=== PATIENT | male | born 1960 | race Caucasian/White ===

== ENCOUNTER 2021-07-24 09:17 | Emergency (ER) | payer MEDICAID, SELFPAY ==
[2021-07-24 09:49] VITALS: BP 148/88; PULSE 65; RESP 20; TEMP 36.6
[2021-07-24 10:27] LABS: Abs Immature Grans 0.04 10^3/uL (0.0-0.06); Absolute Basophil Count 0.07 10^3/uL (0.0-0.2); Absolute Eosinophil Count 0.24 10^3/uL (0.0-0.7); Absolute Monocyte Count 0.62 10^3/uL (0.1-0.8); Absolute Neutrophil Count 7.52 10^3/uL (1.2-6.7); Basophils % 0.6; Eosinophils % 2.2; HCT 45.9 % (40.0-50.0); HGB 14.8 g/dL (13.5-17.5); Immature Grans % 0.4; Lymphocytes % 21.8; MCH 31.8 pg (27.0-33.0); MCHC 32.2 % (32.0-36.0); MCV 98.7 fL (80-95); Monocytes % 5.7; Neutrophils % 69.3; Nucleated RBC 0 %; Platelet Count 266 10^3/uL (130-400); RBC 4.65 10^6/uL (4.36-5.78); RDW 12.3 % (11.8-14.1); RDW-SD 44.8 fL; WBC 10.85 10^3/uL (4.4-10.8)
[2021-07-24 10:28] LABS: Absolute Lymphocyte Count 2.37 10^3/uL (1.2-3.4)
[2021-07-24 10:42] LABS: ALT 15 U/L (16-63); AST 12 U/L (15-37); Albumin 3.6 g/dL (3.4-5.0); Alkaline Phosphatase 76 U/L (46-116); Anion Gap 5.7 mmol/L (3-11); BUN 20 mg/dL (7-18); Bilirubin, Total 0.4 mg/dL (0.2-1.0); CO2 30.3 mmol/L (21.0-32.0); CREATININE 1.2 mg/dL (0.70-1.30); Calcium 8.9 mg/dL (8.5-10.1); Chloride 105 mmol/L (98-107); Glucose 99 mg/dL (74-106); Lipase 45 U/L (73-393); Potassium 4.3 mmol/L (3.5-5.1); Sodium 141 mmol/L (136-145); Total Protein 7.3 g/dL (6.4-8.2)
--- NOTE | 2021-07-24 10:49 | DI.RAD_ITS ---
Exam(s) XR CHEST 2V PA LATERAL EXAM: XR CHEST 2V PA LATERAL CLINICAL HISTORY: cough, r/o acute disease. TECHNIQUE: 2D digital imaging was performed. COMPARISON: No exams were available for comparison FINDINGS: 2 views: Heart size is normal. The mediastinum is not widened. Lungs are clear. No infiltrates nor pleural effusions. Few tiny granulomas are noted in the mid right lung field. IMPRESSION: No acute pulmonary findings. DATA REPOSITORY: RADIATION DOSE DELIVERED:
--- NOTE | 2021-07-24 11:01 | ED.GENADUL_ITS ---
Discharge Plan Disposition Patient Disposition: HOME Condition: Stable Discharge Details Clinical Impression: UTI (urinary tract infection), Chronic sore throat, Chronic cough Primary Care Provider: Unknown,Unknown ED Provider: Edita Trivedi Home Meds and New Rx's Prescriptions: New cephalexin 500 mg capsule 500 mg PO QID 10 Days Qty: 40 0RF Discharge Instructions Instructions: Urinary Tract Infection in Men (ED), Chronic Cough (ED) Additional Instructions: Your work-up today revealed that you have a urinary tract infection. Your Covid, flu, RSV test today is negative. The remainder of your lab work and imaging today is reassuring and shows no evidence of acute concerning or significant findings. You are being sent home with a prescription for antibiotics to take as directed until finished. You have been placed on care management list to arrange for a follow-up appointment with your primary care doctor to establish care and for reevaluation. Return immediately to the emergency department if you develop any worsening or new concerning symptoms. Discharge Data Discharge Date/Time-TO BE ENTERED AT DEPARTURE: 07/24/21 14:39 Discharge Physician: Edita Trivedi Medical Decision Making 60-year-old male with no known medical problems but states he has not seen a primary care doctor for more than 20 years presents for chronic cough, sore throat, body ache and weight loss over the past 2 months after diagnosed with COVID over 6 weeks ago. He is unclear of the amount of weight loss but states he has noticed he seems he has lost weight in his usual clothes. Vitals within normal limits. Patient appears comfortable and nontoxic. Patient arrived during high level of volume and acuity in the ED and screening labs including ua, Fluvid, CXR ordered. His lungs were clear. Abdomen soft nontender. No meningeal signs. Labs reviewed and noted white blood cell count of 10. Normal electrolytes. Lipase normal. Fluvid negative. Chest x-ray negative. Urinalysis notes findings consistent with UTI. Discussed with patient at length regarding his symptoms. Offered to place an IV and give IV fluids but he declined. Discussed his potential weight loss and obtaining a CT chest abdomen and pelvis but he declined stating he would only like antibiotics for his urinary tract infection. He was given a dose of Keflex here and 2 days of antibiotics to go home per his request. He was also given a prescription for keflex. Patient placed on care management list to arrange for a follow-up appointment with the primary care doctor to establish care and for reevaluation. Usual and customary return precautions given prior to discharge. Medical Records Medical records reviewed: Yes I reviewed the patient's medical records. Imaging Data Radiologic Study: Radiologist's impression: ?XR CHEST 2V PA ? LATERAL CLINICAL HISTORY: ? cough, r/o acute disease. ? TECHNIQUE:? 2D digital imaging was performed. COMPARISON:? No exams were available for comparison FINDINGS: 2 views: Heart size is normal.? The mediastinum is not widened. Lungs are clear.? No infiltrates nor pleural effusions. Few tiny granulomas are noted in the mid right lung field. IMPRESSION: No acute pulmonary findings. Lab Data Lab results reviewed: Yes I reviewed the patient's lab results. Labs: 07/24/21 11:11 Urine - Reflex from Ua Urine Culture - Pending Laboratory Tests Range/Units 07/24/21 07/24/21 07/24/21 10:03 10:21 10:21 WBC (4.4-10.8) 10^3/uL 10.85 H RBC (4.36-5.78) 10^6/uL 4.65 Hgb (13.5-17.5) g/dL 14.8 Hct (40.0-50.0) % 45.9 MCV (80-95) fL 98.7 H MCH (27.0-33.0) pg 31.8 MCHC (32.0-36.0) % 32.2 RDW (11.8-14.1) % 12.3 Plt Count (130-400) 10^3/uL 266 MPV (8.0-11.0) fL 10.0 Immature Gran % 0.4 Neutrophils % 69.3 Lymphocytes % 21.8 Monocytes % 5.7 Eosinophils % 2.2 Basophils % 0.6 Nucleated RBC % % 0 Absolute Neutrophils (1.2-6.7) 10^3/uL 7.52 H Absolute Lymphocytes (1.2-3.4) 10^3/uL 2.37 Absolute Monocytes (0.1-0.8) 10^3/uL 0.62 Absolute Eosinophils (0.0-0.7) 10^3/uL 0.24 Absolute Basophils (0.0-0.2) 10^3/uL 0.07 Sodium (136-145) mmol/L 141 Potassium (3.5-5.1) mmol/L 4.3 Chloride (98-107) mmol/L 105 Carbon Dioxide (21.0-32.0) mmol/L 30.3 Anion Gap (3-11) mmol/L 5.7 BUN (7-18) mg/dL 20 H Creatinine (0.70-1.30) mg/dL 1.2 Estimated GFR/1.73 m2 (mL/min/1.73m2) >= 60.00 Glucose (74-106) mg/dL 99 Calcium (8.5-10.1) mg/dL 8.9 Total Bilirubin (0.2-1.0) mg/dL 0.4 AST (15-37) U/L 12 L ALT (16-63) U/L 15 L Alkaline Phosphatase (46-116) U/L 76 Total Protein (6.4-8.2) g/dL 7.3 Albumin (3.4-5.0) g/dL 3.6 Lipase (73-393) U/L 45 Urine Color (Yellow) Urine Clarity (Clear) Urine pH (5-8) Ur Specific [place] (1.005-1.025) Urine Protein (Negative) mg/dL Urine Ketones (Negative) mg/dL Urine Blood (Negative) Urine Nitrite (Negative) Urine Bilirubin (Negative) Urine Urobilinogen (Up TO 0.2) EU/dL Ur Leukocyte Esterase (Negative) Urine RBC (0-2) HPF Urine WBC (0-5) HPF Ur Epithelial Cells (Negative) HPF Urine Crystals (Negative) HPF Urine Bacteria (Negative) HPF Urine Casts (Negative) LPF Urine Mucus (Negative) Ur Culture Indicated? Urine Glucose (Negative) mg/dL COVID-19 Source Not Applicable SARS-CoV-2 (PCR) (Negative) Negative Influenza Type A (PCR) (Negative) Negative Influenza Type B (PCR) (Negative) Negative RSV (PCR) (Negative) Negative Range/Units 07/24/21 11:11 WBC (4.4-10.8) 10^3/uL RBC (4.36-5.78) 10^6/uL Hgb (13.5-17.5) g/dL Hct (40.0-50.0) % MCV (80-95) fL MCH (27.0-33.0) pg MCHC (32.0-36.0) % RDW (11.8-14.1) % Plt Count (130-400) 10^3/uL MPV (8.0-11.0) fL Immature Gran % Neutrophils % Lymphocytes % Monocytes % Eosinophils % Basophils % Nucleated RBC % % Absolute Neutrophils (1.2-6.7) 10^3/uL Absolute Lymphocytes (1.2-3.4) 10^3/uL Absolute Monocytes (0.1-0.8) 10^3/uL Absolute Eosinophils (0.0-0.7) 10^3/uL Absolute Basophils (0.0-0.2) 10^3/uL Sodium (136-145) mmol/L Potassium (3.5-5.1) mmol/L Chloride (98-107) mmol/L Carbon Dioxide (21.0-32.0) mmol/L Anion Gap (3-11) mmol/L BUN (7-18) mg/dL Creatinine (0.70-1.30) mg/dL Estimated GFR/1.73 m2 (mL/min/1.73m2) Glucose (74-106) mg/dL Calcium (8.5-10.1) mg/dL Total Bilirubin (0.2-1.0) mg/dL AST (15-37) U/L ALT (16-63) U/L Alkaline Phosphatase (46-116) U/L Total Protein (6.4-8.2) g/dL Albumin (3.4-5.0) g/dL Lipase (73-393) U/L Urine Color (Yellow) Yellow Urine Clarity (Clear) Cloudy Urine pH (5-8) 7.0 Ur Specific [place] (1.005-1.025) 1.025 Urine Protein (Negative) mg/dL Negative Urine Ketones (Negative) mg/dL Negative Urine Blood (Negative) Small H Urine Nitrite (Negative) Positive H Urine Bilirubin (Negative) Negative Urine Urobilinogen (Up TO 0.2) EU/dL 0.2 Ur Leukocyte Esterase (Negative) Large H Urine RBC (0-2) HPF Urine WBC (0-5) HPF >50 H Ur Epithelial Cells (Negative) HPF Urine Crystals (Negative) HPF Urine Bacteria (Negative) HPF Many Urine Casts (Negative) LPF Urine Mucus (Negative) Ur Culture Indicated? Yes Urine Glucose (Negative) mg/dL Negative COVID-19 Source SARS-CoV-2 (PCR) (Negative) Influenza Type A (PCR) (Negative) Influenza Type B (PCR) (Negative) RSV (PCR) (Negative) HPI General Mode of arrival: ambulatory . Date/Time Provider Initiated Documentation: 07/24/21 09:20 . Limitations to Documentation: no limitations . Information obtained by: patient . HPI Narrative: Patient is a 60-year-old male who has not seen a primary care doctor for more than 20+ years and has no known diagnosed medical problems presents the ED with complaint of not feeling right since diagnosed with COVID in May 2021. He states he is unvaccinated for Covid. He states since then he has had sore throat, cough, body aches, chills and weight loss. He states he is unclear of how much weight he has lost but states he feels skinnier in his clothes. He states he feels feverish at times but has not checked his temperature. He denies any headache, neck pain, chest pain, abdominal pain, vomiting or diarrhea, or urinary symptoms. He states he smokes marijuana occasionally but denies any alcohol or other drug use. Related Data Home Medications Medication Instructions Recorded Confirmed cephalexin 500 mg capsule 500 mg PO QID 10 Days #40 cap 07/24/21 Previous Rx's Medication Instructions Recorded cephalexin 500 mg capsule 500 mg PO QID 10 Days #40 cap 07/24/21 General Stated Complaint: GenMedical ARLEN: 3 Review of Systems All systems reviewed & are unremarkable except as noted in HPI and below Constitutional Constitutional: Reports body ache(s), Denies chills, Denies excessive sweating, Denies fatigue, Denies fever(s), Denies weakness and Reports weight loss Eyes Eyes: Reports system reviewed and no additional complaints, except as documented and Denies blurry vision ENT Ears, Nose, Mouth, and Throat: Denies vertigo, Denies dizziness, Denies otalgia, Denies nasal congestion, Reports sore throat and Denies throat swelling Cardiovascular Cardiovascular: Denies chest pain, Denies syncope, Denies rapid heart rate and Denies dyspnea Respiratory Respiratory: Denies chest congestion, Reports cough, Denies pain on inspiration and Denies dyspnea Gastrointestinal Gastrointestinal: Denies abdominal pain, Denies diarrhea and Denies vomiting Genitourinary Genitourinary: Denies hematuria, Denies dysuria and Denies flank pain Musculoskeletal Musculoskeletal: Denies back pain and Denies joint swelling Integumentary/Breasts Skin/Breast: Denies lesions and Denies rash Neurologic Neurologic: Denies behavioral changes, Denies confusion, Denies vertigo, Denies dizziness, Denies syncope, Denies localized weakness and Denies weakness Psychiatric Psychiatric: Denies behavioral changes, Denies confusion and Denies depression Endocrine Endocrine: Denies excessive sweating and Denies fatigue Hematologic/Lymphatic Hematologic/Lymphatic: Denies easy bruising and Denies lymphadenopathy Allergic/Immunologic Allergic/Immunologic: Denies throat swelling PFSH All Active Problems (Updated 07/24/21 @ 13:18 by Edita Trivedi DO) UTI (urinary tract infection) (Acute) Chronic sore throat (Acute) Chronic cough (Acute) Medical History (Updated 07/24/21 @ 13:18 by Edita Trivedi DO) No significant past medical history Surgical History (Updated 07/24/21 @ 13:17 by Edita Trivedi DO) History of hand surgery History of hernia repair Social History Smoking/Tobacco Use Status: Current every day Tobacco Type: cigarettes Smoking packs per day: 0.5 Smoking cigarettes per day: 10.0 Years smoked: 40 Smoking pack-years: 20.00 Smoking risk assessment performed?: Yes Alcohol Intake: current Alcohol Intake frequency: a few times a week Alcohol type: beer Drug use: Daily Substance use type: marijuana Details: Once a day Do you feel safe at home: Yes Exam Const General: cooperative and no acute distress Orientation: alert, awake and oriented x3 HENMT Head: normal to inspection Ears: hearing grossly normal bilaterally, external ears normal and TM's normal bilaterally General nose exam: external nose normal Face and sinus: normal facial exam Mouth: oral mucosae normal Teeth and gingiva: dentition normal Throat: posterior oropharynx normal Eyes General: appearance normal, both eyes and all related structures Eyelids: eyelids normal Pupils: PERRL EOM: EOM intact bilaterally Neck Neck: normal visual inspection Lymphatic: no lymphadenopathy noted Chest Chest: normal inspection of the chest Resp Effort & Inspection: normal respiratory effort and able to speak in complete sentences Auscultation: clear to auscultation bilaterally Cardio Rate: regular rate Rhythm: regular rhythm GI Inspection: normal to inspection Palpation: soft, not firm, no guarding, no hepatosplenomegaly, no masses and nontender Auscultation: normal bowel sounds Back/Spine/Pelvis Back: no CVA tenderness Skin General skin exam: no rashes or lesions noted Neuro General: patient alert and patient awake Cognition: normal cognition Speech: speech normal Gait: normal gait Motor: muscle tone normal throughout Sensory Exam: no sensory deficits noted Extrem General: normal to inspection, full ROM and capillary refill normal Psych Appearance: grossly normal Mental Status: mental status grossly normal Speech and Movement: speech and movement normal Affect: normal affect Thought Process: normal Course Vital Signs Vital signs: Vital Signs Temperature 97.9 F 07/24/21 09:49 Pulse 65 07/24/21 09:49 Respiratory Rate 20 07/24/21 09:49 Blood Pressure 148/88 H 07/24/21 09:49 Temperature 97.9 F 07/24/21 09:49 Temperature Source Oral 07/24/21 09:49 Pulse 65 07/24/21 09:49 Respiratory Rate 20 07/24/21 09:49 Blood Pressure 148/88 H 07/24/21 09:49 Blood Pressure Position Supine 07/24/21 09:49 Oxygen Delivery Method Room Air 07/24/21 09:49 Oxygen Flow Rate 0 07/24/21 09:49 Pain Level 10 07/24/21 09:49 Comment 07/24/21 09:49 Lab/Test Results Lab/Test Results: Laboratory Tests Range/Units 07/24/21 07/24/21 10:21 10:21 WBC (4.4-10.8) 10^3/uL 10.85 H RBC (4.36-5.78) 10^6/uL 4.65 Hgb (13.5-17.5) g/dL 14.8 Hct (40.0-50.0) % 45.9 MCV (80-95) fL 98.7 H MCH (27.0-33.0) pg 31.8 MCHC (32.0-36.0) % 32.2 RDW (11.8-14.1) % 12.3 Plt Count (130-400) 10^3/uL 266 MPV (8.0-11.0) fL 10.0 Immature Gran % 0.4 Neutrophils % 69.3 Lymphocytes % 21.8 Monocytes % 5.7 Eosinophils % 2.2 Basophils % 0.6 Nucleated RBC % % 0 Absolute Neutrophils (1.2-6.7) 10^3/uL 7.52 H Absolute Lymphocytes (1.2-3.4) 10^3/uL 2.37 Absolute Monocytes (0.1-0.8) 10^3/uL 0.62 Absolute Eosinophils (0.0-0.7) 10^3/uL 0.24 Absolute Basophils (0.0-0.2) 10^3/uL 0.07 Sodium (136-145) mmol/L 141 Potassium (3.5-5.1) mmol/L 4.3 Chloride (98-107) mmol/L 105 Carbon Dioxide (21.0-32.0) mmol/L 30.3 Anion Gap (3-11) mmol/L 5.7 BUN (7-18) mg/dL 20 H Creatinine (0.70-1.30) mg/dL 1.2 Estimated GFR/1.73 m2 (mL/min/1.73m2) >= 60.00 Glucose (74-106) mg/dL 99 Calcium (8.5-10.1) mg/dL 8.9 Total Bilirubin (0.2-1.0) mg/dL 0.4 AST (15-37) U/L 12 L ALT (16-63) U/L 15 L Alkaline Phosphatase (46-116) U/L 76 Total Protein (6.4-8.2) g/dL 7.3 Albumin (3.4-5.0) g/dL 3.6 Lipase (73-393) U/L 45
[2021-07-24 11:19] LABS: Bilirubin Negative (Negative); Blood Small (Negative); Clarity Cloudy (Clear); Glucose Negative (Negative); Ketones Negative (Negative); Leukocyte Esterase Large (Negative); Nitrite Positive (Negative); Specific Gravity 1.025 (1.005-1.025); Urobilinogen 0.2 EU/dL (Up TO 0.2)
[2021-07-24 11:21] LABS: COVID-19 PCR Negative (Negative); Influenza A PCR Negative (Negative); Influenza B PCR Negative (Negative); RSV PCR Negative (Negative)
[2021-07-24 11:30] LABS: Bacteria Many HPF (Negative); WBC >50 HPF (0-5)
[2021-07-24 11:31] LABS: C & S Indicated? Yes
[2021-07-24] MEDS: Cephalexin 500 MG CAP PO (13:52)
[2021-07-24] MEDS: Cephalexin 500 MG CAP, 4 CAPS/BTL PO ×2 (13:53→13:54)
[2021-07-24 14:00] VITALS: BP 116/77; PULSE 54; RESP 18; TEMP 35.8; O2SAT 98
--- NOTE | 2021-07-25 01:16 | NUR.NOTE ---
Referral to Care Management to establish pcp, f/u one week for UTI.Nursing Note:
== END 2021-07-24 14:39 | disposition home or self-care (01) ==
PROVIDERS: Emergency Provider Physician Assistant
DX: N39.0 Urinary tract infection, site not specified (principal); J31.2 Chronic pharyngitis; R05.3 Chronic cough; Z28.310 Unvaccinated for COVID-19; Z20.822 Contact with and (suspected) exposure to COVID-19
CPT/HCPCS: 36415; 80053; 83690; 87637; 99284; 71046; 81003; 81015; 85025; 87086; 99283

== ENCOUNTER 2021-09-23 11:45 | Outpatient (REF) | payer MEDICAID, SELFPAY ==
[2021-09-23 14:35] LABS: Abs Immature Grans 0.03 10^3/uL (0.0-0.06); Absolute Basophil Count 0.07 10^3/uL (0.0-0.2); Absolute Eosinophil Count 0.13 10^3/uL (0.0-0.7); Absolute Lymphocyte Count 2.73 10^3/uL (1.2-3.4); Absolute Monocyte Count 0.79 10^3/uL (0.1-0.8); Absolute Neutrophil Count 7.98 10^3/uL (1.2-6.7); Basophils % 0.6; Eosinophils % 1.1; HCT 49.3 % (40.0-50.0); HGB 16.1 g/dL (13.5-17.5); Immature Grans % 0.3; Lymphocytes % 23.3; MCH 32.5 pg (27.0-33.0); MCHC 32.7 % (32.0-36.0); MCV 100 fL (80-95); MPV 11.3 fL (8.0-11.0); Monocytes % 6.7; Platelet Count 291 10^3/uL (130-400); RBC 4.95 10^6/uL (4.36-5.78); RDW 13.2 % (11.8-14.1); RDW-SD 49.1 fL; WBC 11.73 10^3/uL (4.4-10.8)
[2021-09-23 15:01] LABS: ALT 16 U/L (16-63); AST 19 U/L (15-37); Albumin 3.7 g/dL (3.4-5.0); Alkaline Phosphatase 85 U/L (46-116); Anion Gap 11.5 mmol/L (3-11); BUN 13 mg/dL (7-18); Bilirubin, Total 0.6 mg/dL (0.2-1.0); CO2 24.5 mmol/L (21.0-32.0); Calcium 8.7 mg/dL (8.5-10.1); Calculated LDL 161 mg/dL (<100); Chloride 104 mmol/L (98-107); Cholesterol 225 mg/dL (<200); Glucose 102 mg/dL (74-106); HDL Cholesterol 48 mg/dL (40-60); Magnesium 2.3 mg/dL (1.8-2.4); Potassium 4.5 mmol/L (3.5-5.1); Sodium 140 mmol/L (136-145); TSH 1.09 uIU/mL (0.36-3.74); Triglyceride 82 mg/dL (<150)
[2021-09-23 15:11] LABS: Lipase 53 U/L (73-393)
== END 2021-09-23 11:46 | disposition home or self-care (01) ==
LOC: NCHCN 11:45
PROVIDERS: Visit Provider Nurse Practitioner Family
DX: R06.02 Shortness of breath (principal); Z72.0 Tobacco use; R63.4 Abnormal weight loss; F41.8 Other specified anxiety disorders; R10.817 Generalized abdominal tenderness; M79.604 Pain in right leg; M79.605 Pain in left leg; E78.79 Other disorders of bile acid and cholesterol metabolism
CPT/HCPCS: 80053; 80061; 83690; 83735; 84443; 85025

== ENCOUNTER → 2021-10-12 01:45 | Outpatient (CLI) | payer MEDICAID, SELFPAY ==
--- NOTE | 2021-10-12 | DI.CT_ITS ---
Exam(s) CT CHEST/ABD/PEL WO EXAM: CT CHEST/ABD/PEL WO CLINICAL HISTORY: SOB,R06.02,ABD TENDERNESS,R10.817,WT LOSS,R63.4. TECHNIQUE: Imaging Protocol: Axial computed tomography images with coronal and sagittal reformatted images were created and reviewed CONTRAST MATERIAL: Intravenous: none Oral: Yes. COMPARISON: CR XR CHEST 2V PA LATERAL from 07/24/2021 FINDINGS: CHEST: LUNGS: There is a calcified granuloma in the right upper lobe at junction with right middle lobe. Mi ld increased markings around this level. Mild increased bilateral apical and sub apical markings. N o prominent ground-glass infiltrates, given the recent history here. No pleural effusions.. MEDIASTINUM: No obvious hilar nor mediastinal adenopathy. Partially visualized thyroid unremarkable. CARDIAC: Heart size is normal. There is no pericardial effusion.Caliber of the ascending thoracic ao rta is upper normal. The diameter of the descending thoracic aorta is 3 cm which is dilated. OSSEOUS: No significant osseous lesions.. ABDOMEN: There is no ascites. LIVER: There is a small hypodensity in the right hepatic lobe which measures 8 x 7 millimeters, diffi cult to characterize on a noninfused study but having benign appearance, probably a cyst or small hem angioma. There are no other discrete focal hepatic lesions evident on this noninfused study and ther e is no dilatation of intrahepatic ducts. The gallbladder is collapsed. No obvious radiopaque calcu li therein. CBD is not dilated. GALLBLADDER/BILIARY: No obvious gallbladder pathology. CBD is not dilated. PANCREAS: No evidence of obvious pancreatic mass nor dilatation of the pancreatic duct. SPLEEN: Spleen is not enlarged. No obvious intrasplenic lesions. ADRENALS: There are no significant adrenal masses. KIDNEYS: Right kidney unremarkable. Dilated left renal pelvis and infundibulum I. no obvious masses at the ureteropelvic junction and no left ureter is not dilated.. Small cyst in the lateral cortex l eft kidney noted. Another cyst measuring 11 millimeters is also noted in left kidney. No obvious fo manny abnormalities evident in the somewhat distended urinary bladder. ABDOMINAL AORTA: There is a prominent fusiform infrarenal abdominal aortic aneurysm. This exhibits m aximum external diameter of 4.5 cm. Aneurysmal dilatation extends to and the somewhat beyond the aor tic bifurcation with an element of arterial megaly of both common iliac arteries, both of which exhib it diameters of 1.6 cm. LYMPH NODES: There is no retroperitoneal nor para-aortic adenopathy. ABDOMINAL WALL/GI: No evidence of significant anterior abdominal wall nor inguinal hernia. No evidence of bowel obstruction. PELVIS: LYMPH NODES: There is no intrapelvic nor inguinal adenopathy. GI: No evidence of appendicitis.No evidence of sigmoid diverticulitis. URINARY BLADDER: No calculi nor obvious masses evident REPRODUCTIVE: Prostate not enlarged. Seminal vesicles unremarkable. OSSEOUS: No significant osseous lesions. Healed left-sided rib fractures. IMPRESSION: 1. There is a fusiform infrarenal abdominal aortic aneurysm with maximum external diameter 4.5 cm. M ild arterial megaly of both common iliac arteries noted (1.6 cm bilaterally). 2. Small 8 millimeter hypodensity in the right hepatic lobe, difficult to adequately evaluated on thi s type of noninfused study but probably representing benign cyst or hemangioma. 3. Calcified granuloma noted in the right upper lobe with some surrounding increased markings. Recom mend follow-up CT scan in 3 months. RADIATION DOSE DELIVERED: 1,034.17mGy.cm Total DLP DATA REPOSITORY: All CT scans at this facility are submitted to the National Radiology Data Registry (NRDR) Dose Index Registry (DIR) with the [employer] (ACR). RADIATION OPTIMIZATION: All CT scans at this facility use at least one of these dose optimization te chniques: automated exposure control; mA and/or kV adjustment per patient size (includes targeted exa ms where dose is matched to clinical indication); or iterative reconstruction.
--- NOTE | 2021-10-12 14:30 | DI.US_ITS ---
APPROVED REPORT EXAM: Comprehensive 2D, Doppler, and color-flow Echocardiogram Patient Location: Out-Patient Wheel Molder: Soni Mauricio RDCS (AE) Indications: SOB, Weight loss Other Information Study Quality: Adequate Conclusion Normal left ventricular wall thickness and chamber size. Estimated ejection fraction is 55%. No seg mental wall motion abnormalities are appreciated Normal right ventricular size and systolic function Both atria are normal in size There is no structural or hemodynamically significant valvular disease Estimated right ventricular systolic pressure is 22 mmHg Wall motion Left Ventricle The left ventricle is normal size. The left ventricular systolic function is normal. . There is kelli l left ventricular wall thickness. There is normal LV segmental wall motion. There is no ventricular septal defect visualized. LVEF is 55%. Right Ventricle The right ventricle is normal size. The right ventricular systolic function is normal. The RVSP is 21 .9mmHg. Atria The left atrium size is normal. The right atrium size is normal. The interatrial septum is intact wit h no evidence for an atrial septal defect. Aortic Valve The aortic valve is normal in structure. Aortic valve is trileaflet. There is no aortic valvular sten osis. No aortic regurgitation is present. Mitral Valve The mitral valve is normal in structure. No evidence of mitral valve stenosis. Trace mitral regurgita tion. Tricuspid Valve The tricuspid valve is normal in structure. There is no tricuspid valve stenosis. Trace tricuspid reg urgitation. Pulmonic Valve Pulmonic valve is not well visualized. There is no pulmonic valvular stenosis. There is no pulmonic v alvular regurgitation. Great Vessels The aortic root is normal in size. Ascending aorta is not well visualized. Aortic arch is normal in c aliber. IVC is normal in size and collapses >50% with inspiration. Pericardium There is no pericardial effusion. 2D Dimensions IVSD d PLAX 0.94 cm M: 0.6-1.2 LV Vol A2C d MOD 128.9 mL LVPW d PLAX 0.95 cm M: 0.6 - 1.2 LV Vol A4C d MOD 126.3 mL LVID d PLAX 5.38 cm M: 4.2 - 5.8 LA vol/ BSA A2C s A-L 30.4 mL/m2 LVDs 3.70 cm M: 2.5 - 4.0 LA vol/ BSA A4C s A-L 17.2 mL/m2 Ao Root d 3.01 cm M: 3.1 - 3.7 LA Vol/ BSA Biplane s A-L 24.2 mL/m2 RA Area A4C 15.60 cm2 LA Area A4C s MOD 13.88 cm2 RA Vol/ BSA A4C s A-L 24.3 mL/m2 LA Area A2C s MOD 19.61 cm2 LV EF Teichholz 57.1 % LV EF A4C MOD 55.8 % LVEF (Parrish's) 55.21 % M: 52 - 72 LV EF A2C MOD 55.1 % LV Volume 97.41 mL M: 62 - 150 LV EF Biplane MOD 55.2 % LV Volume Index 50.47 mL/m2 M: 34 - 74 SV 70.95 mL LV Vol Biplane MOD 128.5 mL SV Index 36.62 mL/m2 FS 30.25 % M-Mode TAPSE 2.83 cm (M/F) >1.7 LV Diastology MV E' medial 0.099 (>0.07 m/s) E/A Ratio 0.8 LV E/e MED 5.05 (<14) MV E Vmax 0.50 (0.4-1.3 m/s) MV E' lateral 0.123 (>0.1 m/s) MV A Vmax 0.60 (0.4-1.3 m/s) LV E/e LAT 4.05 (<14) MV E/A Ratio 0.81 MV E/E' medial 5.09 MV E/E' lateral 4.08 Aortic Valve LVOT Area 3.17 cm2 AoV Area Vmax 2.38 cm2 LVOT Vmax 1.19 m/s AoV Area/ BSA (Vmax) 1.23 cm2/m2 LVOT Mean Loc. 0.71 m/s LANRE Mean Loc. 2.14 cm2 LVOT Peak Grad 5.7 mmHg LANRE Mean Loc. Index 1.10 cm2/m2 LVOT Mean Grad 2.5 mmHg LVOT VTI 0.249 m LVOT Diam s 2.00 cm AoV Vmax 1.59 m/s Velocity Ratio 0.74 AoV Mean Loc. 1.06 m/s AoV Peak Grad 10.1 mmHg LVOT SV 79.13 mL AoV Mean Grad 5.0 mmHg AoV VTI 0.295 m AoV Area VTI 2.68 cm2 AoV Area/ BSA (VTI) 1.38 cm/m2 Mitral Valve MV DT 352 (160-240 msec) MV PHT 102 msec MV Area PHT 2.15 cm2 MV VTI 0.265 m MV Area VTI 2.99 (4.0-6.0 cm2) Pulmonary Valve PV Vmax 1.12 (0.5-1.5 m/s) RVOT Peak Gr. 1.79 mmHg PV Peak Grad 5.0 mmHg RVOT Mean Gr. 0.85 mmHg PV Mean Grad 2.6 mmHg RVOT VTI 0.148 m PV VTI 0.231 m RVOT Vmax 0.67 m/s Tricuspid Valve TR Peak Grad 18.9 mmHg TR Vmax 2.18 m/s RA Pressure 3.00 mmHg RVSP (TR) 21.9 mmHg
== END ==
PROVIDERS: Visit Provider Nurse Practitioner Family
DX: R06.02 Shortness of breath (principal); R63.4 Abnormal weight loss
CPT/HCPCS: 71250; 74176; 93306